=== PATIENT | female | born 1990 | race Caucasian/White ===

== ENCOUNTER 2017-10-05 16:15 | Emergency (ER) | payer MEDICAID, SELFPAY ==
[2017-10-05 16:18] VITALS: BP 130/100; PULSE 86; RESP 18; TEMP 36.9; O2SAT 98; BMI 24.6
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
--- NOTE | 2017-10-05 16:28 | RAD_ITS ---
STUDY: X-RAY - LEFT FOOT CLINICAL: Female, 27 years old. Pain TECHNIQUE: 3 view(s) of the foot. COMPARISON: None. FINDINGS: Normal talus, calcaneus, and tarsal bones. Normal visualized subtalar, talonavicular, calcaneocuboid, tarsal and tarsometatarsal articulations. Normal metatarsi. Normal metatarsophalangeal joint of the great toe. Normal tibial and fibular sesamoid bones. Normal interphalangeal joint of the great toe. Normal phalanges of the great toe. Normal second through fifth metatarsophalangeal joints. Normal interphalangeal joints and phalanges of the lesser toes. The soft tissue structures are unremarkable. RAD/Foot min 3 Views IMPRESSION: Normal x-ray examination of the foot. Electronically Signed: Travis Curtis MD at 18:09 EDT , Service support ,
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
[2017-10-05] MEDS: Diphth,Pertuss(Acell),Tet Vac 0.5 ML Vial IM (16:37)
[2017-10-05] MEDS: Naproxen 500 MG Tablet PO (16:45)
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
[2017-10-05 17:59] VITALS: RESP 18
== END 2017-10-05 17:59 | disposition home or self-care (01) ==
PROVIDERS: Emergency Provider Emergency Medicine
DX: S71.112A Laceration without foreign body, left thigh, initial encounter (principal); S20.212A Contusion of left front wall of thorax, initial encounter; S90.32XA Contusion of left foot, initial encounter; M54.2 Cervicalgia; V86.95XA Unspecified occupant of 3- or 4- wheeled all-terrain vehicle (ATV) injured in nontraffic accident, initial encounter; Y93.89 Activity, other specified; Y92.9 Unspecified place or not applicable; Y99.9 Unspecified external cause status; Z23 Encounter for immunization; Z72.0 Tobacco use
CPT/HCPCS: 71046; 73552; 73630; 90715; 99283

== ENCOUNTER 2017-12-23 12:10 | Emergency (ER) | payer SELFPAY ==
[2017-12-23 12:11] VITALS: BP 140/80; PULSE 112; RESP 16; TEMP 36.2; O2SAT 98; BMI 23.3
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
[2017-12-23 13:30] LABS: Mucous, Urine 0 SEEN /hpf (<or=2+); Red Blood Cells-Urine 0 SEEN /hpf (0-5)
[2017-12-23 13:34] LABS: Internal QC Validated? YES +Cl - CLEAR BKGD; Pregnancy, Urine Negative Negative
[2017-12-23 13:37] LABS: Color, Urine Yellow (Yellow); Glucose, Dipstick Normal (Normal); Ketone-Dipstick Negative (Negative); Leukocyte Esterase-Dipstick 500 /ul (Negative); Nitrite-Dipstick Negative (Negative); Occult Blood-Urine 25 /ul (Negative); Protein-Dipstick 15 mg/dl (Negative); Urine Bilirubin Dipstick Negative (Negative); Urine Clarity Sl. Cloudy (Clear); Urine Urobilinogen Normal (Normal)
[2017-12-23 13:38] LABS: Bacteria 1+ /hpf (None Seen); Squamous Epithelial Cells - UA 0-5 SEEN /hpf (5-10); White Blood Cells 5-10 SEEN /hpf (0-5)
--- NOTE | 2017-12-23 13:53 | ED.RN ---
SPOKE TO PSYCHOLOGIST [facility] WHO STATES THEY ARE IN THE MIDDLE OF A PROCEDURE AND WILL TAKE PT AFTER.
[2017-12-23 14:26] VITALS: RESP 16
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
--- NOTE | 2017-12-23 15:08 | ED.DEP ---
ED Disposition - Plan for ED Patient: Chief Complaint: General Illness Instructions: ED Kidney Infec Female Prescriptions: Ciprofloxacin [Cipro] 500 mg PO BID #20 tab Referrals: Calli Omer DO [NON-STAFF] -
[2017-12-23 16:23] VITALS: PULSE 84; RESP 15; O2SAT 100
== END 2017-12-23 16:23 | disposition home or self-care (01) ==
LOC: ED 13:34
PROVIDERS: Emergency Provider Emergency Medicine
DX: N39.0 Urinary tract infection, site not specified (principal); M79.89 Other specified soft tissue disorders; R22.42 Localized swelling, mass and lump, left lower limb
CPT/HCPCS: 76882; 81001; 81025; 99282